=== PATIENT | female | born 1995 | race Caucasian/White ===

== ENCOUNTER 2019-01-05 11:07 | Emergency (ER) | payer OTHER ==
[2019-01-05 11:43] VITALS: BP 123/72; PULSE 58; TEMP 98.6; BMI 22.4
--- NOTE | 2019-01-05 12:16 | PDOC ---
History of Present Illness - General Chief Complaint: Wound Stated Complaint: LTS FACE SWOLLEN Time Seen by Provider: 01/05/19 12:06 - History of Present Illness Initial Comments: 01/05/19 12:14 23-year-old female with left-sided facial swelling and dental pain times one week recently exacerbated over the last 2 days without precipitating events. She did finish a course of amoxicillin but never followed up with a dentist. Past History - Past Medical History Allergies/Adverse Reactions: Allergies Allergy/AdvReac Type Severity Reaction Status Date / Time No Known Allergies Allergy Verified 01/09/14 04:18 Home Medications: Ambulatory Orders Amoxicillin - [Amoxicillin 500mg Capsule -] 500 mg PO BID #14 capsule 01/05/19 COPD: No GI Disorders: Yes (gastritis) Seizures: Yes (febrile) - Immunization History Immunization Up to Date: Yes - Suicide/Smoking/Psychosocial Hx Smoking Status: No Smoking History: Never smoked Have you smoked in the past 12 months: No Number of Cigarettes Smoked Daily: 0 Information on smoking cessation initiated: No Hx Alcohol Use: No Drug/Substance Use Hx: No Review of Systems - Review of Systems Constitutional: No: Fever HEENTM: Yes: Dental Problems *Physical Exam - Vital Signs Last Vital Signs Temp Pulse Resp BP Pulse Ox 98.6 F 58 L 18 123/72 99 01/05/19 11:40 01/05/19 11:40 01/05/19 11:40 01/05/19 11:40 01/05/19 11:40 - Physical Exam Comments: 01/05/19 12:14 HEAD: NC/AT EYES: Conjuntiva clear Ears: Canals and TM's normal MOUTH: There is left-sided facial swelling. Swelling on the mucosal aspect of the lower posterior gums no palpable fluctuance or erythemic areas left lower wisdom tooth appears to be impacted NOSE: No d/c THROAT: Moist mucous membrances, oral pharanx clear, uvula midline NECK: Supple without adenopathy CARDIAC: S1 S2 LUNGS: CTA Full and Equal breath sounds ABDOMEN: Soft NT ND MS: Full ROM in all joints without edema NEUROLOGIC: No gross sensory or motor deficits, NVID SKIN: Normal color and temperature no lesions or rashes Moderate Sedation - Procedure Monitoring Vital Signs: Procedure Monitoring Vital Signs Temperature 98.6 F 01/05/19 11:40 Pulse Rate 58 L 01/05/19 11:40 Respiratory Rate 18 02/26/19 11:40 Blood Pressure 123/72 01/05/19 11:40 O2 Sat by Pulse Oximetry (%) 99 01/05/19 11:40 *DC/Admit/Observation/Transfer Diagnosis at time of Disposition: Dental abscess - Discharge Dispostion Disposition: HOME Condition at time of disposition: Stable Decision to Admit order: No - Prescriptions Prescriptions: Amoxicillin - [Amoxicillin 500mg Capsule -] 500 mg PO BID #14 capsule - Referrals Referrals: Urgent Care [facility] [Outside] - Patient Instructions Printed Discharge Instructions: Tooth Abscess Additional Instructions: Please report to urgent care dental. They will see you today. Return to the emergency room for worsening symptoms. Please take the antibiotics as directed. Tylenol and Motrin as directed for pain - Post Discharge Activity
== END 2019-01-05 12:33 | disposition home or self-care (01) ==
LOC: JERFT 11:07
DX: K04.7 Periapical abscess without sinus (principal)
CPT/HCPCS: 99281-25

== ENCOUNTER 2019-06-05 12:00 | Emergency (ER) | payer SELFPAY | END 2019-06-05 12:38 | disposition home or self-care (01) | LOC: JER 12:00 ==

== ENCOUNTER 2019-06-12 12:31 | Emergency (ER) | payer SELFPAY ==
[2019-06-12 12:34] VITALS: BP 113/81; PULSE 89; TEMP 98.4; BMI 22.4
--- NOTE | 2019-06-12 13:07 | PDOC ---
Suture Removal/Wound Check HPI - History of Present Illness Chief Complaint: Suture/Staple Removal(Here) Stated Complaint: SUTURE REMOVAL Time Seen by Provider: 06/12/19 12:43 History Source: Yes: Patient Exam Limitations: Yes: Clinical Condition Treated at: [facility] Past History - Past Medical History Allergies/Adverse Reactions: Allergies Allergy/AdvReac Type Severity Reaction Status Date / Time No Known Allergies Allergy Verified 06/12/19 12:34 Home Medications: Ambulatory Orders NK [No Known Home Medication] 06/12/19 COPD: No GI Disorders: Yes (gastritis) Seizures: Yes (febrile) - Immunization History Immunization Up to Date: Yes - Suicide/Smoking/Psychosocial Hx Smoking Status: No Smoking History: Current every day smoker Have you smoked in the past 12 months: Yes Number of Cigarettes Smoked Daily: 1 Information on smoking cessation initiated: No Hx Alcohol Use: No Drug/Substance Use Hx: Yes (Marjuana) Suture Removal/Wound Check PE - Physical Exam Laceration/Wound Check Symptoms: reports: None. denies: Fever, Chills, Redness , Bleeding, Numbness, Weakness Current Severity Level: None *Review of Systems - Review of Systems Constitutional: No: Chills, Fever, Malaise HEENTM: No: Symptoms Reported Respiratory: No: Symptoms reported Cardiac (ROS): No: Symptoms Reported ABD/GI: No: Symptoms Reported Musculoskeletal: No: Symptoms Reported, See HPI, Muscle Pain (scalp pain) Integumentary: Yes: Symptoms Reported, See HPI, Other (laceration to scalp with trini in place) Neurological: No: Symptoms reported, Headache, Pre-Existing Deficit, Unsteady Gait, Ataxia, Dizziness All Other Systems: Reviewed and Negative *Physical Exam - Vital Signs Last Vital Signs Temp Pulse Resp BP Pulse Ox 98.4 F 89 18 113/81 99 06/12/19 12:33 06/12/19 12:33 06/12/19 12:33 06/12/19 12:33 06/12/19 12:33 - Physical Exam General Appearance: Yes: Nourished, Appropriately Dressed. No: Apparent Distress HEENT: positive: Normal ENT Inspection Neck: positive: Supple Respiratory/Chest: positive: Normal Breath Sounds. negative: Respiratory Distress, Accessory Muscle Use Musculoskeletal: positive: Normal Inspection Extremity: positive: Normal Inspection Integumentary: positive: Normal Color, Other ( well healed 2cm laceration to left side of scalp with [address] no wound dehiscense. no skin erythema. no drainage from wound) Neurologic: positive: Fully Oriented, Alert, Normal Mood/Affect, Normal Response Medical Decision Making - Medical Decision Making 06/12/19 13:13 Patient with no medical history of present for staple removal status post presenting over week ago with laceration to left scalp requiring staple placement. Exam significant for well-healed 2 cm laceration to left side of scalp with [address] No skin erythema. No drainage from wound site or evidence of wound infection. Trini removed with staple removal kit without complication. Patient tolerated procedure well and left room the complication. Patient stable for discharge *DC/Admit/Observation/Transfer Diagnosis at time of Disposition: Encounter for removal of trini - Discharge Dispostion Disposition: HOME Condition at time of disposition: Stable Decision to Admit order: No - Referrals - Patient Instructions Printed Discharge Instructions: How to Care for a Surgical Wound-[place] Additional Instructions: continue applying bacitracin or neosporin to wound twice until completely healed. Follow-up with PCP as needed - Post Discharge Activity
== END 2019-06-12 13:15 | disposition home or self-care (01) ==
LOC: JERFT 12:31
DX: Z48.817 Encounter for surgical aftercare following surgery on the skin and subcutaneous tissue (principal); Z48.02 Encounter for removal of sutures
CPT/HCPCS: 99281-25

== ENCOUNTER 2019-09-30 18:59 | Emergency (ER) | payer OTHER ==
[2019-09-30 19:04] VITALS: BP 131/84; PULSE 80; TEMP 98.3; BMI 22.4
--- NOTE | 2019-09-30 19:07 | PDOC ---
Rapid Medical Evaluation Time Seen by Provider: 09/30/19 19:01 Medical Evaluation: Allergies Allergy/AdvReac Type Severity Reaction Status Date / Time No Known Allergies Allergy Verified 06/12/19 12:34 09/30/19 19:02 I have performed a brief in-person evaluation of this patient Chief complaint: denies pmhx c/o suprapubic pain with slight nausea x 4 days, went to [facility] ED 3 days ago, told her urine tests were normal and was prescribed pyridium. denies f/c/d/v, back pain. Pertinent PE findings: stable, NAD, non-focal I have ordered the following: UA, UCX, upt The patient will proceed to the ED for further evaluation. I have performed a brief in-person evaluation of this patient. Discharge Disposition - Diagnosis Suprapubic pain - Referrals - Patient Instructions - Post Discharge Activity
[2019-09-30 20:09] LABS: EPI CELLS 0.3 /HPF (0-5/HPF); HYALINE CASTS 0 /lpf (0-8); PH,URINE 7.5 (5.0-8.0); URINE APPEARANCE CLEAR; URINE BACTERIA 0.2 /hpf (NEGATIVE); URINE BILIRUBIN NEGATIVE (NEGATIVE); URINE COLOR DK YELLOW; URINE GLUCOSE (UA) NEGATIVE (NEGATIVE); URINE KETONE NEGATIVE (NEGATIVE); URINE LEUK ESTERASE NEGATIVE (NEGATIVE); URINE NITRITE POSITIVE (NEGATIVE); URINE PROTEIN NEGATIVE (NEGATIVE); URINE RBC 0 /hpf (0-4); URINE WBC 0 /hpf (0-5)
[2019-09-30] MEDS ORDERED: CEPHALEXIN MONOHYDRATE 500 MG CAPSULE (UD) PO ONE (20:15)
--- NOTE | 2019-09-30 20:21 | PDOC ---
History of Present Illness - General Chief Complaint: Pain Stated Complaint: LOWER ABDOMINAL PAIN Time Seen by Provider: 09/30/19 19:01 History Source: Patient Exam Limitations: No Limitations Past History - Past Medical History Allergies/Adverse Reactions: Allergies Allergy/AdvReac Type Severity Reaction Status Date / Time No Known Allergies Allergy Verified 09/30/19 19:05 Home Medications: Ambulatory Orders Cephalexin [Keflex] 500 mg PO BID #14 capsule 09/30/19 COPD: No GI Disorders: Yes (gastritis) Seizures: Yes (febrile) - Immunization History Immunization Up to Date: Yes - Psycho Social/Smoking Cessation Hx Smoking Status: No Smoking History: Never smoked Have you smoked in the past 12 months: Yes Number of Cigarettes Smoked Daily: 1 Hx Alcohol Use: No Drug/Substance Use Hx: Yes (Marjuana) *Physical Exam - Vital Signs Last Vital Signs Temp Pulse Resp BP Pulse Ox 98.3 F 80 18 131/84 100 09/30/19 19:00 09/30/19 19:00 09/30/19 19:00 09/30/19 19:00 09/30/19 19:00 - Physical Exam General Appearance: No: Apparent Distress Respiratory/Chest: positive: Lungs Clear, Normal Breath Sounds. negative: Respiratory Distress Cardiovascular: positive: Regular Rhythm, Regular Rate, S1, S2. negative: Murmur Female Pelvic Exam: positive: normal external exam. negative: CMT, discharge, adnexal tenderness Gastrointestinal/Abdominal: positive: Normal Bowel Sounds, Soft. negative: Tender, Distended, Guarding, Rebound Musculoskeletal: negative: CVA Tenderness Neurologic: positive: Alert, Normal Mood/Affect ED Treatment Course - ADDITIONAL ORDERS Additional order review: Laboratory Results 09/30/19 09/30/19 19:43 19:43 Urine Color Dk yellow Urine Appearance Clear Urine pH 7.5 D Ur Specific [place] 1.006 L Urine Protein Negative Urine Glucose (UA) Negative Urine Ketones Negative Urine Blood Negative Urine Nitrite Positive H Urine Bilirubin Negative Urine Urobilinogen 1.0 Ur Leukocyte Esterase Negative Urine WBC (Auto) 0 Urine RBC (Auto) 0 Urine Casts (Auto) 0 U Epithel Cells (Auto) 0.3 Urine Bacteria (Auto) 0.2 Urine HCG, Qual Negative Medical Decision Making - Medical Decision Making 24 y/o F with hx of kidney stones presents with suprapubic pain x 1 week along with increased frequency and pain with urination. Went to [facility] 4 days ago, told she had negative urine and was prescribed pyridium, but states medication has not been helping. Denies fever, sob, cp, abd pain, n/v, hematuria , vag discharge. Is not sexually active. Denies hx of STDs. UA - nitrite false positive likely from the Pyridium However, given patient is symptomatic, will treat Explained will get callback re: urine culture 09/30/19 20:18 Discharge - Discharge Information Problems reviewed: Yes Clinical Impression/Diagnosis: Suprapubic pain Condition: Stable Disposition: HOME - Admission No - Additional Discharge Information Prescriptions: Cephalexin [Keflex] 500 mg PO BID #14 capsule Prescription Drug Monitoring Program (I-STOP) results: I-STOP not reviewed - Follow up/Referral - Patient Discharge Instructions Patient Printed Discharge Instructions: DI for Urinary Tract Infection (UTI) Additional Instructions: Thank you for choosing [facility]. It was a pleasure taking care of you. Take antibiotics as prescribed You will get call back regarding your urine culture results Drink 2-3 L of water daily Follow-up with your board of education secretary and regular doctor as well Return to the Emergency Department if your symptoms worsen or persist or have other concerning symptoms. - Post Discharge Activity
[2019-09-30] MEDS ORDERED: CEPHALEXIN MONOHYDRATE 500 MG CAPSULE (UD) ONE (20:27)
== END 2019-09-30 20:32 | disposition home or self-care (01) ==
LOC: JERFT 18:59
DX: R10.2 Pelvic and perineal pain (principal); Z87.440 Personal history of urinary (tract) infections; Z87.442 Personal history of urinary calculi
CPT/HCPCS: 81003; 84703; 87086; 99281-25

== ENCOUNTER 2023-04-11 17:35 | Emergency (ER) | payer OTHER ==
[2023-04-11 17:41] VITALS: BMI 24.4
[2023-04-11] MEDS ORDERED: ACETAMINOPHEN 500 MG TABLET (FP) PO ONE (19:10)
[2023-04-11] MEDS ORDERED: ACETAMINOPHEN 500 MG TABLET (FP) ONE (19:29)
[2023-04-11 19:45] LABS: BASO % 0.1 % (0-2.0); EOS % 0.1 % (0-4.5); HEMATOCRIT 35.5 % (32.4-45.2); LYMPH % 18.1 % (8-40); MCH 29.7 pg (25.7-33.7); MCHC 33.7 g/dl (32.0-36.0); MEAN CELL VOLUME 88.3 fl (80-96); MEAN PLT VOLUME 7.2 fl (7.5-11.1); NEUT % 73.7 % (42.8-82.8); PLATELET COUNT 375 10^3/uL (134-434); RBC 4.02 M/mm3 (3.60-5.2); RDW 13.4 % (11.6-15.6); WHITE BLOOD COUNT 13.5 K/mm3 (4.0-10.0)
[2023-04-11 19:48] LABS: EPI CELLS >36 /uL (0-25.1); HYALINE CASTS 3 /uL (0-3.1); PH,URINE 6.5 (5.0-8.0); URINE APPEARANCE CLEAR; URINE BACTERIA 900 /uL (0-1359); URINE BILIRUBIN NEGATIVE (NEGATIVE); URINE COLOR YELLOW; URINE GLUCOSE (UA) NEGATIVE (NEGATIVE); URINE KETONE NEGATIVE (NEGATIVE); URINE LEUK ESTERASE 1+ (NEGATIVE); URINE NITRITE NEGATIVE (NEGATIVE); URINE PROTEIN TRACE (NEGATIVE); URINE RBC 28 /uL (0-23.9); URINE WBC 158 /uL (0-25.8)
[2023-04-11 19:50] LABS: HCG,QUALITATIVE URINE Negative
[2023-04-11 19:57] LABS: POTASSIUM 4.2 mmol/L (3.5-5.1)
[2023-04-11 19:59] LABS: ALBUMIN 3.7 g/dl (3.4-5.0); CALCIUM 9.6 mg/dL (8.5-10.1)
[2023-04-11 20:00] LABS: BLOOD UREA NITROGEN 9.4 mg/dL (7-18)
[2023-04-11 20:02] LABS: CREATININE 0.7 mg/dL (0.55-1.3)
[2023-04-11 20:04] LABS: BILIRUBIN,TOTAL 0.3 mg/dL (0.2-1); TOT PROT 7.8 g/dl (6.4-8.2)
[2023-04-11] MEDS ORDERED: DOXYCYCLINE HYCLATE 100 MG CAPSULE PO ONE ×2 (20:09→20:20)
[2023-04-11] MEDS ORDERED: metroNIDAZOLE 250 MG TABLET PO ONE (20:09)
[2023-04-11] MEDS ORDERED: metroNIDAZOLE 250 MG TABLET ONE (20:20)
[2023-04-11] MEDS ORDERED: ONDANSETRON 4 MG/2 ML VIAL IVPUSH ONE (22:14)
[2023-04-11] MEDS ORDERED: ONDANSETRON 4 MG/2 ML VIAL ONE (22:16)
[2023-04-11 23:21] VITALS: BP 110/78; PULSE 78; RESP 19; TEMP 98.6
== END 2023-04-11 23:21 | disposition home or self-care (01) ==
LOC: JER 17:35
PROC: 3E033GC Introduction of Other Therapeutic Substance into Peripheral Vein, Percutaneous Approach (ICD-10-PCS; principal; 2023-04-11)
PROC: 3E02329 Introduction of Other Anti-infective into Muscle, Percutaneous Approach (ICD-10-PCS; 2023-04-11)
DX: R10.32 Left lower quadrant pain (principal); R10.31 Right lower quadrant pain; R68.83 Chills (without fever); R31.9 Hematuria, unspecified; N73.9 Female pelvic inflammatory disease, unspecified; N83.291 Other ovarian cyst, right side
CPT/HCPCS: 36415; 76705-TC; 76830-TC; 80053; 81003; 84703; 85025; 87086; 87491; 87591; 99284-25

== ENCOUNTER 2024-02-07 08:55 | Inpatient (IN) | payer OTHER ==
[2024-02-07] MEDS: ELECTROLYTE-148 SOLN 1,000 ML IV SCH (09:15)
[2024-02-07] MEDS ORDERED: BUTORPHANOL TARTRATE 1 MG/ML VIAL IVPB PRN (09:35)
[2024-02-07 09:48] VITALS: BMI 31.2
[2024-02-07 10:00] LABS: BASO % 0.4 % (0-2.0); EOS % 1.4 % (0-4.5); HEMATOCRIT 37.3 % (32.4-45.2); HEMOGLOBIN 12.6 GM/dL (10.7-15.3); LYMPH % 17.7 % (8-40); MCH 29.5 pg (25.7-33.7); MCHC 33.9 g/dl (32.0-36.0); MEAN CELL VOLUME 87.1 fl (80-96); MEAN PLT VOLUME 7.8 fl (7.5-11.1); MONO % 5.6 % (3.8-10.2); NEUT % 74.9 % (42.8-82.8); PLATELET COUNT 248 10^3/uL (134-434); RBC 4.28 M/mm3 (3.60-5.2); RDW 14.2 % (11.6-15.6); WHITE BLOOD COUNT 11.5 K/mm3 (4.0-10.0)
[2024-02-07 10:06] LABS: INR 0.9 (0.83-1.09); PROTHROMBIN TIME (PATIENT) 10.5 SEC (9.7-13.0)
[2024-02-07 10:09] LABS: ACTIVATED PTT 28.6 SECONDS (25.2-36.5)
[2024-02-07 10:14] LABS: POTASSIUM 4.3 mmol/L (3.5-5.1)
[2024-02-07 10:15] LABS: CALCIUM 9.1 mg/dL (8.5-10.1)
[2024-02-07 10:16] LABS: BLOOD UREA NITROGEN 12.4 mg/dL (7-18)
[2024-02-07 10:19] LABS: CREATININE 0.6 mg/dL (0.55-1.3)
[2024-02-07] MEDS ORDERED: FENTANYL CITRATE/PF 50 MCG/ML VIAL ONE ×4 (10:44→22:43)
[2024-02-07] MEDS ORDERED: FENTANYL/BUPIVACAINE/NS/PF - PCEA - 50 ML DISP.SYRIN EP ONE ×4 (10:46→22:42)
[2024-02-07] MEDS: FENTANYL/BUPIVACAINE/NS/PF - PCEA - 50 ML DISP.SYRIN EP SCH (11:00)
[2024-02-07] MEDS ORDERED: NALOXONE HCL 0.4 MG/ML VIAL IVPUSH PRN (11:25)
[2024-02-07] MEDS ORDERED: SODIUM CHLORIDE 100 ML IVPB ONE ×3 (11:47→18:29)
[2024-02-07] MEDS ORDERED: AMPICILLIN SODIUM 2 GM VIAL ONE (11:47)
[2024-02-07] MEDS: AMPICILLIN - 2 GM in SODIUM CHLORIDE 100 ML IVPB ONE (11:57)
[2024-02-07] MEDS ORDERED: AMPICILLIN SODIUM 1 GM VIAL ONE ×2 (15:40→21:33)
[2024-02-07] MEDS: AMPICILLIN - 1 GM in SODIUM CHLORIDE 100 ML IVPB SCH (15:56)
[2024-02-07] MEDS ORDERED: OXYTOCIN 30 UNITS in 0.9% NS 30 UNIT/500 ML INFUS.BAG IVPB ONE ×2 (17:07→22:39)
[2024-02-07] MEDS ORDERED: OXYTOCIN 20 UNITS in 0.9% NS 20 UNIT/1,000 ML INFUS.BAG IV ONE (17:08)
[2024-02-07] MEDS: OXYTOCIN 30 UNITS in 0.9% NS 30 UNIT/500 ML INFUS.BAG IVPB SCH (17:25)
[2024-02-07] MEDS: PROMETHAZINE HCL 25 MG/1 ML VIAL IVPB ONE (18:39)
[2024-02-07 19:16] VITALS: RESP 18
[2024-02-07] MEDS ORDERED: METHYLERGONOVINE MALEATE 0.2 MG/1 ML AMP IM PRN (22:34)
[2024-02-07] MEDS ORDERED: SODIUM BICARBONATE 8.4% 50 MEQ/50 ML VIAL ONE (22:39)
[2024-02-07] MEDS ORDERED: LIDO 2%/EPI 1:200000 PRESRVFRE (20 ML SDVIAL) ONE (22:39)
[2024-02-07] MEDS ORDERED: ceFAZolin SODIUM 1 GM VIAL ONE (22:43)
[2024-02-07] MEDS ORDERED: ONDANSETRON 4 MG/2 ML VIAL ONE (22:43)
[2024-02-07] MEDS ORDERED: ePHEDrine SULFATE 50 MG/1 ML AMPULE ONE (22:43)
[2024-02-07] MEDS ORDERED: morphine SULFATE/PF 1 MG/2 ML (2cc Syringe - QUVA) ONE (22:43)
[2024-02-07] MEDS ORDERED: SODIUM CHLORIDE 0.9% P/F 10 ML VIAL IJ ONE (22:43)
[2024-02-07] MEDS ORDERED: KETOROLAC TROMETHAMINE 30 MG/1 ML VIAL ONE (22:44)
[2024-02-07] MEDS ORDERED: AZITHROMYCIN IVPB 500 MG/250 ML BAG IVPB ONE (23:16)
[2024-02-07] MEDS ORDERED: OXYTOCIN 10 UNITS/ML VIAL ONE (23:25)
[2024-02-08] MEDS ORDERED: ONDANSETRON 4 MG/2 ML VIAL IVPUSH PRN (00:11)
[2024-02-08] MEDS ORDERED: morphine SULFATE/PF 1 MG/2 ML (2cc Syringe - QUVA) EP ONE (00:11)
[2024-02-08 01:03] LABS: CORD HCO3 21.5 mmHg (20-29); CORD PCO2 55.8 mmHg (30-78); CORD pH 7.204 (7.14-7.44)
[2024-02-08 01:07] LABS: CORD PCO2 46.4 mmHg (30-78); CORD pH 7.253 (7.14-7.44)
[2024-02-08] MEDS: ACETAMINOPHEN 1000 MG/100 ML BAG IVPB PRN (01:45)
[2024-02-08] MEDS ORDERED: CEFAZOLIN 1 GM/D5W 50 ML IVPB SCH (02:00)
[2024-02-08] MEDS: OXYTOCIN 20 UNITS in 0.9% NS 20 UNIT/1,000 ML INFUS.BAG IV SCH (02:15)
[2024-02-08] MEDS: CEFAZOLIN 1 GM in DEXTROSE 5%-WATER - 50 ML IVPB SCH (06:11)
[2024-02-08 08:05] LABS: HEMATOCRIT 32.8 % (32.4-45.2); MCH 29.7 pg (25.7-33.7); MCHC 33.6 g/dl (32.0-36.0); MEAN CELL VOLUME 88.4 fl (80-96); MEAN PLT VOLUME 8.4 fl (7.5-11.1); PLATELET COUNT 222 10^3/uL (134-434); RBC 3.71 M/mm3 (3.60-5.2); RDW 13.9 % (11.6-15.6)
[2024-02-08 08:53] LABS: ANISOCYTOSIS 0; HELMET CELLS 0; HOWELL-JOLLY BODIES 0; MACROCYTOSIS 0; OVALOCYTE 0; ROULEAU 0; SICKELED CELLS 0; TARGET CELLS 0; TEAR DROP CELLS 0; TOXIC GRANULATION 0
[2024-02-08] MEDS: FERROUS SO4 325 MG TABLET (FP) PO SCH (09:20)
[2024-02-08] MEDS: PRENATAL VITAMINS W/ FOLIC ACID TABLET (FP) PO SCH (11:02)
[2024-02-08] MEDS: IBUPROFEN 800 MG/8 ML IJ IVPB PRN (13:32)
[2024-02-08] MEDS: SIMETHICONE 80 MG TAB.CHEW (FP) PO PRN (18:29)
[2024-02-08] MEDS: ACETAMINOPHEN 325 MG TABLET (FP) PO PRN (18:29)
[2024-02-08] MEDS: IBUPROFEN 600 MG TABLET (FP) PO PRN (21:48)
[2024-02-08] MEDS: SENNOSIDES/DOCUSATE COMBO (SENNA PLUS) TABLET (UD) PO PRN (21:48)
[2024-02-08] MEDS ORDERED: BISACODYL 10 MG SUPP.RECT RC PRN (22:34)
[2024-02-09] MEDS: AMOX TR/POT CLAV 875MG/125MG TABLETS (FP) PO ONE (10:13)
[2024-02-09] MEDS: oxyCODONE HCL 5 MG TABLET PO PRN (21:25)
[2024-02-10 08:00] LABS: BASO % 0.3 % (0-2.0); HEMATOCRIT 29.2 % (32.4-45.2); HEMOGLOBIN 9.7 GM/dL (10.7-15.3); MCH 29.5 pg (25.7-33.7); MCHC 33.2 g/dl (32.0-36.0); MEAN CELL VOLUME 88.9 fl (80-96); MONO % 5.7 % (3.8-10.2); PLATELET COUNT 220 10^3/uL (134-434); RBC 3.29 M/mm3 (3.60-5.2); RDW 14.6 % (11.6-15.6); WHITE BLOOD COUNT 12.7 K/mm3 (4.0-10.0)
[2024-02-10] MEDS: oxyCODONE HCL 5 MG TABLET PO PRN (20:24)
[2024-02-11 09:54] VITALS: BP 138/82; PULSE 77; TEMP 98
== END 2024-02-11 13:30 | disposition home or self-care (01) | DRG 540 ==
LOC: JDEL 08:55 → JLDR 09:09 → J3W 02-08 02:39
PROVIDERS: ADMIT Obstetrics & Gynecology; ATTEND Obstetrics & Gynecology
PROC: 10D00Z1 Extraction of Products of Conception, Low, Open Approach (ICD-10-PCS; principal; 2024-02-07)
DX: O76 Abnormality in fetal heart rate and rhythm complicating labor and delivery (principal); O32.4XX0 Maternal care for high head at term, not applicable or unspecified; Z3A.39 39 weeks gestation of pregnancy; Z37.0 Single live birth
CPT/HCPCS: 36415; 36600; 59025; 80048; 82803; 82962; 85025; 85610; 85730; 86780; 86850; 86900; 86901; 88307-TC; J0131